=== PATIENT | female | born 1960 | race Caucasian/White ===

== ENCOUNTER → 2018-03-09 | Outpatient (CLI) | payer BC ==
[~2018-03-09] MED LIST: DIAZEPAM2 MG PO; DICLOFENAC POTA50 MG PO; FLEXERIL PO; IBUPROFEN 800800 MG PO; LIPITOR 20 MG T20 M1 PO; LORTAB 5 MG/5001 TA1 PO; MAGNESIUM30 MG PO; NORCO 5-325 TA1 EACH PO; OMEPRAZOLE; PROBIOTIC1 EAC1 PO; PROTONIX40 M1 PO; TRICOR145 MG PO; ULTRAM50 MG PO; WELLBUTRIN XL300 MG PO; ZOCOR; ZOLPIDEM TARTRA10 MG PO
--- NOTE | 2018-03-09 16:26 | 2DMMODE ---
[place] [address] 2 D/M-MODE ECHOCARDIOGRAM Name: PAULINA WILLINGHAM Room: [facility]#: [id number] Admission: 03/09/18 Attend Phys: Charlotte Greene MD Discharge: Date of : 64 Date of Service: 03/09/18 1626 Report #: [id number] THIS REPORT FOR: //name// APPROVED REPORT Study performed: 03/09/2018 15:10:36 EXAM: Comprehensive 2D, Doppler, and color-flow Echocardiogram Patient Location: Out-Patient Status: routine BSA: 2.21 HR: 90 bpm BP: 140/82 mmHg Other Information Study Quality: Fair Indications Dyspnea 2D Dimensions LVEF(%): 70.12 (>50%) IVSd: 12.88 (7-11mm) LVOT Diam: 20.48 (18-24mm) LVDd: 44.84 mm PWd: 11.83 (7-11mm) Ascending Ao: 27.80 (22-36mm) LVDs: 27.15 (25-40mm) Aortic Root: 25.81 mm Wilcox's LVEF: 70.12 % Volumes Left Atrial Volume (Systole) LA ESV Index: 12.40 mL/m2 Aortic Valve AoV Peak Destin.: 1.31 m/s AO Peak Gr.: 6.84 mmHg LVOT Max P.98 mmHg AO Mean Gr.: 4.00 mmHg LVOT Mean P.77 mmHg LVOT Max V: 1.22 m/s AO V2 VTI: 25.16 cm LVOT Mean V: 0.76 m/s ANA (VTI): 2.95 cm2 LVOT V1 VTI: 22.54 cm Mitral Valve E/A Ratio: 1.04 MV Decel. Time: 180.26 [place] [address] 2 D/M-MODE ECHOCARDIOGRAM Name: PAULINA WILLINGHAM AHMET Room: [facility]#: [id number] Admission: 03/09/18 Attend Phys: Charlotte Greene MD Discharge: Date of : 64 Date of Service: 03/09/18 1626 Report #: [id number] MV E Max Destin.: 0.73 m/s MV PHT: 52.28 ms MVA (PHT): 4.21 cm2 TDI E/Lateral E': 4.87 E/Medial E': 5.62 Medial E' Destin.: 0.13 m/s Lateral E' Destin.: 0.15 m/s Pulmonary Valve PV Peak Destin.: 1.12 m/s PV Peak Gr.: 5.06 mmHg Left Ventricle The left ventricle is normal size. There is normal LV segmental wall motion. There is normal left ventricular wall thickness. Left ventricular systolic function is normal. The left ventricular ejection fraction is within the normal range. LVEF is 55-60%. Grade I - abnormal relaxation pattern. Right Ventricle The right ventricle is normal size. The right ventricular systolic function is normal. Atria The left atrium size is normal. The right atrium size is normal. Aortic Valve The aortic valve is normal in structure. No aortic regurgitation is present. There is no aortic valvular stenosis. Mitral Valve The mitral valve is normal in structure. There is no mitral valve regurgitation noted. No evidence of mitral valve stenosis. Tricuspid Valve The tricuspid valve is normal in structure. There is no tricuspid valve regurgitation noted. Pulmonic Valve The pulmonary valve is normal in structure. There is no pulmonic valvular regurgitation. Great Vessels The aortic root is normal in size. IVC is normal in size and collapses with >50% [place] [address] 2 D/M-MODE ECHOCARDIOGRAM Name: PAULINA WILLINGHAM Room: [facility]#: [id number] Admission: 03/09/18 Attend Phys: Charlotte Greene MD Discharge: Date of : 64 Date of Service: 03/09/18 1626 Report #: [id number] Pericardium There is no pericardial effusion. <Conclusion> LVEF is 55-60%. There is normal LV segmental wall motion. There is no aortic valvular stenosis. No aortic regurgitation is present. There is no pulmonic valvular regurgitation. The pulmonary valve is normal in structure. The right ventricle is normal size. Grade I - abnormal relaxation pattern. <ELECTRONICALLY SIGNED> By: Yordan Dawn MD, FACC 03/09/18 1626 1626 1626 Yordan Dawn MD, FACC /INF
== END ==
LOC: M.CRD 14:58
DX: R06.00 Dyspnea, unspecified (principal); R06.02 Shortness of breath; R60.0 Localized edema

== ENCOUNTER 2018-05-06 14:05 | Emergency (ER) | payer BC ==
[~2018-05-06] VITALS: Ht 165.1 cm; Wt 122.5 kg
[~2018-05-06 14:05] MED LIST changes: -DIAZEPAM2 MG PO; -DICLOFENAC POTA50 MG PO; -FLEXERIL PO; -LIPITOR 20 MG T20 M1 PO; -MAGNESIUM30 MG PO; -PROBIOTIC1 EAC1 PO; -PROTONIX40 M1 PO; -TRICOR145 MG PO; -ULTRAM50 MG PO; -WELLBUTRIN XL300 MG PO; -ZOLPIDEM TARTRA10 MG PO
[2018-05-06] MEDS ORDERED: ULTRAM50 MG PO (14:15)
[2018-05-06] MEDS ORDERED: FLEXERIL PO (14:17)
[2018-05-06] MEDS ORDERED: LIPITOR 20 MG T20 M1 PO (14:17)
[2018-05-06] MEDS ORDERED: WELLBUTRIN XL300 MG PO (14:17)
[2018-05-06] MEDS ORDERED: MAGNESIUM30 MG PO (14:18)
[2018-05-06] MEDS ORDERED: PROBIOTIC1 EAC1 PO (14:18)
[2018-05-06] MEDS ORDERED: TRICOR145 MG PO (14:18)
[2018-05-06] MEDS ORDERED: DICLOFENAC POTA50 MG PO (14:18)
[2018-05-06] MEDS ORDERED: PROTONIX40 M1 PO (14:18)
[2018-05-06] MEDS ORDERED: ZOLPIDEM TARTRA10 MG PO (14:19)
[2018-05-06 15:32] LABS: APTT 31.9 Seconds (25.0-31.3); PROTIME 10.3 Seconds (9.20-11.50)
[2018-05-06 16:57] LABS: HEMATOCRIT 42.1 % (37.0-47.0); HEMOGLOBIN 13.9 gm/dL (12.0-15.0); MCH 27.6 pg (26.0-34.0); MCV 83.8 fL (80.0-100.0); MPV 9.5 fl. (7.2-11.1); RBC 5.03 mil/uL (4.20-5.00); RDW-CV 15.2 % (10.5-14.5); WBC 7.8 thou/uL (4.0-11.0)
[2018-05-06 17:00] LABS: CALCIUM 9.5 mg/dL (8.5-10.1); CREATININE 0.7 mg/dL (0.6-1.3); POTASSIUM 3.9 mmol/L (3.5-5.1)
[2018-05-06] MEDS ORDERED: DIAZEPAM2 MG PO (17:59)
[2018-05-06 18:09] VITALS: BP 143/76
--- NOTE | 2018-05-07 10:44 | EKG ---
[place] [address] ELECTROCARDIOGRAM REPORT Name: WILLINGHAMPAULINA Room: [facility]#: [id number] Admission: 05/06/18 Attend Phys: Discharge: 05/06/18 Date of : 64 Report #: [id number] THIS REPORT FOR: //name// [facility] ED Test Date: 2018-05-06 Test Time: 14:11:18 Pat Name: PAULINA WILLINGHAM Department: Room: Gender: F Medical Charge Entry Specialist: Trevon CEDENO : 1960 Requested By: Kanids Rubin Order Number: [id number] Reading MD: Yordan Dawn Measurements Intervals [place] Rate: 81 P: -5 ID: [id number] QRS: 52 QRSD: 98 T: 10 QT: 380 QTc: 441 Interpretive Statements Sinus rhythm Compared to ECG 10/21/2010 20:25:22 No significant changes Electronically Signed On 05-07-2018 10:44:10 CDT by Yordan Dawn [email or web address] <ELECTRONICALLY SIGNED> By: Yordan Dawn MD, [facility] 05/07/18 1044 1411 1411 Yordan Dawn MD, [facility] /EPI
== END 2018-05-06 18:11 | disposition home or self-care (01) ==
LOC: M.ERS 14:05
PROVIDERS: Personal Emergency Response Attendant
DX: R42 Dizziness and giddiness (principal); K21.9 Gastro-esophageal reflux disease without esophagitis; E78.00 Pure hypercholesterolemia, unspecified; Z88.2 Allergy status to sulfonamides; Z88.8 Allergy status to other drugs, medicaments and biological substances; Z90.710 Acquired absence of both cervix and uterus

== ENCOUNTER → 2020-04-27 | Outpatient (CLI) | payer OTHER ==
[~2020-04-27] MED LIST changes: +DIAZEPAM2 MG PO; +DICLOFENAC POTA50 MG PO; +FLEXERIL PO; +LIPITOR 20 MG T20 M1 PO; +MAGNESIUM30 MG PO; +PROBIOTIC1 EAC1 PO; +PROTONIX40 M1 PO; +TRICOR145 MG PO; +ULTRAM50 MG PO; +WELLBUTRIN XL300 MG PO; +ZOLPIDEM TARTRA10 MG PO
== END ==
LOC: M.RAD 11:56
PROVIDERS: ATTEND Internal Medicine
DX: R09.1 Pleurisy (principal); R06.02 Shortness of breath